=== PATIENT | female | born 1960 | race Hispanic/Latino ===

== ENCOUNTER → 2018-04-17 | Outpatient (CLI) | payer OTHER ==
[~2018-04-17] MED LIST: DICYCLOMINE HCL20 MG PO; OMEPRAZOLE40 MG PO; PANTOPRAZOLE SO40 MG PO; RANITIDINE HCL150 MG PO; RANITIDINE HCL300 M1 PO; REGLAN10 MG PO; SUCRALFATE1 GM PO; ZOFRAN ODT4 MG SL
--- NOTE | 2018-04-26 08:45 | Diagnostic Imaging Report ---
#[id number] - MGSCRBIL #BILATERAL DIGITAL SCREENING MAMMOGRAM WITH CAD: 04/17/2018 CLINICAL: Routine screening. Comparison is made to exams dated: 03/25/2017 mammogram and 01/23/2015 mammogram - [facility]. Current study contains 4 films. The tissue of both breasts is heterogeneously dense. This may lower the sensitivity of mammography. Current study was also evaluated with a Computer Aided Detection (CAD) system. There are benign calcifications in the right breast. No significant masses, calcifications, or other findings are seen in either breast. There has been no significant interval change. IMPRESSION: BENIGN There is no mammographic evidence of malignancy. A 1 year screening mammogram is recommended. The patient will be notified by letter of the results. Jenrao flanagan/arsh:04/25/2018 16:22:36 Smelter Charger: Renita MELGAR(Myrtle)(Tiffany), [facility] letter sent: Compared to Prior B9 Mammogram BI-RADS: 2 Benign
== END ==
LOC: MAMMO 11:22
PROVIDERS: ATTEND Obstetrics & Gynecology
DX: Z12.31 Encounter for screening mammogram for malignant neoplasm of breast (principal)
CPT/HCPCS: 77067

== ENCOUNTER → 2018-07-13 | Day surgery (SDC) | payer OTHER ==
[~2018-07-13] MED LIST changes: +FENTANYL CITRATE/PF 100MCG/2 ML INJ ONE; +MIDAZOLAM HCL 2 MG/2 ML VIAL ONE; +PROPOFOL IV EMULSION 10 MG/ML 50 ML VIAL ONE
[2018-07-13 17:00] VITALS: BP 146/90
--- NOTE | 2018-07-13 20:00 | Operative Report ---
DATE OF PROCEDURE: July 13, 2018 PROCEDURES PERFORMED: Esophagogastroduodenoscopy with biopsies and pyloric channel stricture dilatation per TTS balloon dilators. REFERRING PHYSICIAN: Dr. Beto Pavon INDICATIONS FOR EGD: Upper abdominal pain, bloating, dark stools. MEDICATION: Patient was done under MAC. Please see anesthesiologist note. PROCEDURE IN DETAIL: With the patient in left lateral decubitus position, the flexible fiberoptic Olympus gastroscope was introduced into the esophagus under direct visualization without any difficulty. There was some patchy erythema noted in distal esophagus. The scope was then advanced with ease into the stomach, and the mucosa overlying the antrum and the body revealed some diffuse erythema and low-grade edema, and biopsies were obtained and sent to stain for H. pylori. The pylorus was somewhat stenotic and that was dilated to size 20 mm per TTS balloon dilators. The scope was then advanced with ease all the way to the second portion of the duodenum. A minute nodule was noted in the proximal second portion that was biopsied, also biopsies were obtained from the proximal second portion and the duodenal bulb to rule out sprue. The scope was then withdrawn back into the stomach. It was then retroflexed. The mucosa overlying the fundus and the cardia appeared to be within normal limits. The scope was then straightened out. It was subsequently withdrawn. Patient tolerated procedure well. IMPRESSION: 1. Distal esophagitis. 2. Gastritis, biopsied. Biopsy sent to stain for Helicobacter pylori. 3. Pyloric channel stricture dilated to size 20 mm per TTS balloon dilators. 4. Rule out sprue. 5. Nodule, proximal second portion, biopsied. PLAN: Follow up histology. Increase omeprazole to 40 mg 1 p.o. a.c. b.i.d. Job#: [id number] cc:BETO PAVON M.D.
--- OUTSIDE RECORDS SUMMARY | 2018-07-14 11:09 | XMS REPORT ---
Author [facility] Address Unknown Phone Unavailable Care Team Providers Care Director Of Capital Giving Name Role Phone FREDDIE TRAORE Unavailable Unavailable Problems This patient has no known problems. Allergies, Adverse Reactions, Alerts This patient has no known allergies or adverse reactions. Medications This patient has no known medications. Results Test Description Test Time Test Comments Text Results Atomic Results Result Comments MAMMOGRAPHY DIGITAL SCR BILAT 2018-04-17 12:46:00 [place] [address] Patient Name: BERNADETTE MARTINEZ MR #: [id number] : 1960 Age/Sex: 58/F Req #: [id number] [facility] Physician: Ordered by: FREDDIE TRAORE MD Report #: [id number] Location: MAMMO Room/Bed: Procedure: [id number] MG/MAMMOGRAPHY DIGITAL SCR BILAT Exam Date: 04/17/18 Exam Time: 1233 REPORT STATUS: Signed #[id number] - MGSCRBIL #BILATERAL DIGITAL SCREENING MAMMOGRAM WITH CAD: 04/17/2018 CLINICAL: Routine screening. Comparison is made to exams dated: 03/25/2017 mammogram and 01/23/2015 mammogram - [facility]. Current study contains 4 films. The tissue of both breasts is heterogeneously dense. This may lower the sensitivity of mammography. Current study was also evaluated with a Computer Aided Detection (CAD) system. There are benign calcifications in the right breast. No significant masses, calcifications, or other findings are seen in either breast. There has been no significant interval change. IMPRESSION: BENIGN There is no mammographic evidence of malignancy. A 1 year screening mammogram is recommended. The patient will be notified by letter of the results. Sd flanagan/dominic:04/25/2018 16:22:36 Bale Piler: Renita PINO)(Tiffany), [facility] letter sent: Compared to Prior B9 Mammogram BI-RADS: 2 Benign Dictated By: SD LAMAS DO 21 Transcribed By: DOMINIC on 04/25/181621 COPY TO: FREDDIE TRAORE MD MAMMOGRAPHY DIGITAL SCR BILAT [place] [address] Patient Name: BERNADETTE MARTINEZ MR #: [id number] : 1960 Age/Sex: 57/F Req #: [id number] [facility] Physician: Ordered by: FREDDIE TRAORE MD Report #: [id number] Location: MAMMO Room/Bed: Procedure: [id number] MG/MAMMOGRAPHY DIGITAL SCR BILAT Exam Date: 03/25/17 Exam Time: 0842 REPORT STATUS: Signed #[id number] - MGSCRBIL #BILATERAL DIGITAL SCREENING MAMMOGRAM WITH CAD: 03/25/2017 CLINICAL: Routine screening. Comparison is made to exams dated: 03/11/2016 mammogram, 01/23/2015 mammogram and 01/23/2014 mammogram - [facility]. Current study contains 4 films. The tissue of both breasts is heterogeneously dense. This may lower the sensitivity of mammography. Current study was also evaluated with a Computer Aided Detection (CAD) system. There are benign calcifications in the right breast. No significant masses, calcifications, or other findings are seen in either breast. There has been no significant interval change. IMPRESSION: BENIGN There is no mammographic evidence of malignancy. A 1 year screening mammogram is recommended. The patient will be notified by letter of the results. Sd flanagan/dominic:03/29/2017 12:09:19 Bale Piler: Renita MELGAR(R)(M), [facility] letter sent: Compared to Prior B9 Mammogram BI-RADS: 2 Benign Dictated By: SD LAMAS DO 1208 Transcribed By: DOMINIC on 03/29/17 1201 COPY TO: FREDDIE TRAORE MD
--- OUTSIDE RECORDS SUMMARY | 2018-07-14 11:09 | XMS REPORT | Clinical Summary ---
Author Author [facility] Address Unknown Phone Unavailable Care Team Providers Care Piper Installer Name Role Phone Caitlin Pavon MD PCP Allergies No Known Allergies Medications End Date Status Medication Sig Dispensed Refills Start Date Active omeprazole (PriLOSEC) 40 Daily 0 MG capsule 04/12/2018 gabapentin (NEURONTIN) Take 1 90 capsule 11 100 mg capsule capsule (100 7 mg total) by mouth 3 (three) times a day. Active Problems Problem Noted Date Reflux laryngitis 02/03/2017 Overview: Added automatically from request for surgery [id number] Family History Medical History Relation Name Comments Diabetes Brother Heart disease Brother Heart disease Father Relation Name Status Comments Brother Father Social History Date Tobacco Use Types Packs/Day Years Used Never Smoker Sex Assigned at Date Recorded Not on file Industry Job Start Date Occupation Not on file Not on file Not on file Travel End Travel History Travel Start No recent travel history available. Last Filed Vital Signs Not on file Plan of Treatment Health Maintenance Due Date Last Done Comments CERVICAL CANCER SCREENING 1982 BREAST CANCER SCREENING 2011 COLON CANCER SCREENING 2011 SHINGLES VACCINES (1 of 2011 2) INFLUENZA VACCINE 01/11/2018 Results Not on fileafter 07/13/2017 Insurance Payer Benefit Subscriber ID Type Phone Address Plan / Group [facility] xxxxxxxxx HMO/PPO THCARE CHOICE/CHO ICE + Advance Directives Patient has advance care planning documents on file. For more information, janeen e contact: Wes Garcia [address] [place] [address]
== END | disposition home or self-care (01) ==
LOC: OR 11:06
PROVIDERS: ATTEND Internal Medicine Gastroenterology
DX: D13.2 Benign neoplasm of duodenum (principal); K20.9 Esophagitis, unspecified; K29.70 Gastritis, unspecified, without bleeding; K31.1 Adult hypertrophic pyloric stenosis; K21.9 Gastro-esophageal reflux disease without esophagitis; R03.0 Elevated blood-pressure reading, without diagnosis of hypertension; Z88.6 Allergy status to analgesic agent; Z01.810 Encounter for preprocedural cardiovascular examination; Z68.29 Body mass index [BMI] 29.0-29.9, adult
CPT/HCPCS: 43239; 43245; 93005; C1726; J2250; J2704; 43233

== ENCOUNTER → 2018-07-29 | Day surgery (SDC) | payer OTHER ==
[~2018-07-29] MED LIST changes: -FENTANYL CITRATE/PF 100MCG/2 ML INJ ONE; +PROBIOTIC PO; +PROPOFOL IV EMULSION 10 MG/ML 20 ML VIAL ONE; -PROPOFOL IV EMULSION 10 MG/ML 50 ML VIAL ONE
--- NOTE | 2018-07-29 16:51 | Operative Report ---
DATE OF PROCEDURE: July 29, 2018 REFERRING PHYSICIAN: Dr. Caitlin Pavon. PROCEDURE PERFORMED: Esophagogastroduodenoscopy with polypectomy. INDICATIONS FOR PROCEDURE: History of duodenal adenoma. EGD is being done to remove any residual polypoid tissue. MEDICATION: Patient was done under MAC. Please see anesthesiologist's note. PROCEDURE: With the patient in left lateral decubitus position, a flexible fiberoptic Olympus gastroscope was introduced into the esophagus under direct visualization without any difficulty. The esophagus appeared to be within normal limits. The scope was then advanced with ease into the stomach. Mucosa overlying the antrum and body revealed some patchy erythema. Pylorus was intubated with ease, and the scope was advanced all the way to the 2nd portion of the duodenum. The previously described duodenal nodule was identified and all residual tissue was removed per snare electrocautery and polypectomy site was hemoclipped. The duodenal bulb appeared to be within normal limits. The scope was then withdrawn back into the stomach and retroflexed. Mucosa overlying the fundus and the cardia appeared to be within normal limits. The scope was then straightened out. It was subsequently withdrawn. Patient tolerated the procedure well. IMPRESSION 1. Normal esophagus. 2. Gastritis, mild. 3. Previously described adenoma site removed per snare electrocautery and hemoclipped. PLAN: Follow up histology. Continue omeprazole 40 mg 1 p.o. a.c. b.i.d. Job#: [id number] LPA cc:CAITLIN PAVON MD
--- OUTSIDE RECORDS SUMMARY | 2018-07-31 11:48 | XMS REPORT | Clinical Summary ---
Author Author [facility] Address Unknown Phone Unavailable Care Team Providers Care Poultry Picking Machine Tender Name Role Phone Caitlin Pavon MD PCP [...] Overview: Added automatically from request for surgery [id number] Family History Medical History Relation Name Comments [...] INFLUENZA VACCINE 01/11/2018 Results Not on fileafter 07/30/2017 Insurance Payer Benefit Subscriber ID Type Phone Address Plan / Group [employer] xxxxxxxxx HMO/PPO THCARE CHOICE/CHO ICE + Advance Directives Patient has advance care planning documents on file. For more information, janeen e contact: Wes Garcia [address] [place] [address]
== END | disposition home or self-care (01) ==
LOC: OR 12:06
PROVIDERS: ATTEND Internal Medicine Gastroenterology
DX: D13.2 Benign neoplasm of duodenum (principal); R03.0 Elevated blood-pressure reading, without diagnosis of hypertension; Z68.28 Body mass index [BMI] 28.0-28.9, adult; R10.10 Upper abdominal pain, unspecified; R11.0 Nausea; Z88.8 Allergy status to other drugs, medicaments and biological substances
CPT/HCPCS: 43251; J2250; J2704

== ENCOUNTER → 2019-01-19 | Day surgery (SDC) | payer OTHER ==
[~2019-01-19] MED LIST changes: +ALIGN4 MG PO; +LIDOCAINE HCL 2% LOCAL INJ 5 ML SDV VIAL INJ ONE; -PROPOFOL IV EMULSION 10 MG/ML 20 ML VIAL ONE; +PROPOFOL IV EMULSION 10 MG/ML 50 ML VIAL ONE
--- OUTSIDE RECORDS SUMMARY | 2019-01-19 08:05 | XMS REPORT | Clinical Summary ---
Author Author [facility] Address Unknown Phone Unavailable Care Team Providers Care Process Development Associate Name Role Phone Caitlin Pavon MD PCP [...] Overview: Added automatically from request for surgery [id number] Family History Medical History Relation Name Comments [...] Health Maintenance Due Date Last Done Comments BREAST CANCER SCREENING 2011 COLONOSCOPY SCREENING 2011 SHINGLES VACCINES (#1) 2011 INFLUENZA VACCINE 01/11/2019 Results Not on fileafter 01/18/2018 Insurance Type Payer Benefit Subscriber ID Effective Phone Address Plan / Dates Group HMO/PPO [facility] xxxxxxxxx [id number] THCARE resent CHOICE/CHO ICE + Advance Directives Patient has advance care planning documents on file. For more information, janeen e contact: Wes Garcia [address] [place] [address]
[2019-01-19 11:55] VITALS: BP 129/87
--- NOTE | 2019-01-19 15:27 | Operative Report ---
DATE OF PROCEDURE: 01/19/2019 SURGEON: Matthew Pierce MD PROCEDURE: Esophagogastroduodenoscopy with biopsies. INDICATIONS FOR PROCEDURES: History of duodenal adenoma. MEDICATIONS: The patient was done under MAC, please see anesthesiologist's note. PROCEDURE IN DETAIL: With the patient in left lateral decubitus position, flexible fiberoptic Olympus gastroscope was introduced into the esophagus under direct visualization without any difficulty. There was some patchy erythema noted in distal esophagus. Overall, the esophagus appeared to be within normal limits. The scope was then advanced with ease into the stomach. Mild inflammatory changes were noted in the antrum. The pylorus was of normal contour and shape, it was intubated with ease and the scope was advanced all the way to the second portion of the duodenum. Polypectomy site was noted in the proximal second portion and biopsies were obtained. Mucosa overlying the duodenal bulb appeared to be within normal limits. The scope was then withdrawn back into the stomach and retroflexed, mucosa overlying the fundus and cardia appeared to be within normal limits. The scope was then straightened out, it was subsequently withdrawn. The patient tolerated the procedure well. IMPRESSION: 1. Normal esophagus. 2. Gastritis, mild. 3. Polypectomy site second portion of duodenum, extensively biopsied. PLAN: Follow up histology. Continue omeprazole 40 mg one p.o. a.c. b.i.d. If biopsies were totally unremarkable, then the patient might benefit from a followup EGD in 3 years. Matthew Pierce MD [facility] /[id number] cc: Caitlin Pavon
== END | disposition home or self-care (01) ==
LOC: OR 08:03
PROVIDERS: ATTEND Internal Medicine Gastroenterology
DX: D13.2 Benign neoplasm of duodenum (principal); K29.70 Gastritis, unspecified, without bleeding; R03.0 Elevated blood-pressure reading, without diagnosis of hypertension; Z88.6 Allergy status to analgesic agent; Z01.810 Encounter for preprocedural cardiovascular examination; Z68.29 Body mass index [BMI] 29.0-29.9, adult
CPT/HCPCS: 43239; 93005; J2001; J2250; J2704

== ENCOUNTER → 2019-06-07 | Outpatient (CLI) | payer OTHER ==
[~2019-06-07] MED LIST changes: -LIDOCAINE HCL 2% LOCAL INJ 5 ML SDV VIAL INJ ONE; -MIDAZOLAM HCL 2 MG/2 ML VIAL ONE; -PROPOFOL IV EMULSION 10 MG/ML 50 ML VIAL ONE
--- NOTE | 2019-06-22 10:03 | Diagnostic Imaging Report ---
#[id number] - MGSCRBIL #BILATERAL DIGITAL SCREENING MAMMOGRAM WITH CAD: 06/07/2019 CLINICAL: Routine screening. Comparison is made to exams dated: 04/17/2018 mammogram, 03/25/2017 mammogram, 03/11/2016 mammogram, 01/23/2015 mammogram, 01/23/2014 mammogram and 09/23/2012 mammogram - [facility]. The tissue of both breasts is heterogeneously dense. This may lower the sensitivity of mammography. Current study was also evaluated with a Computer Aided Detection (CAD) system. There are benign lymph nodes in both breasts. There also is a benign calcification and an intramammary node in the right breast. Additionally there are benign vascular calcifications in the left breast. No significant masses, calcifications, or other findings are seen in either breast. There has been no significant interval change. IMPRESSION: BENIGN There is no mammographic evidence of malignancy. A 1 year screening mammogram is recommended. The patient will be notified by letter of the results. MASHA wright/arsh:06/21/2019 13:09:36 Cable Engineer: Renita PINO)(M), [facility] letter sent: Compared to Prior B9 Mammogram BI-RADS: 2 Benign
== END ==
LOC: MAMMO 08:10
PROVIDERS: ATTEND Obstetrics & Gynecology
DX: Z12.31 Encounter for screening mammogram for malignant neoplasm of breast (principal)
CPT/HCPCS: 77067

== ENCOUNTER → 2019-12-24 | Day surgery (SDC) | payer OTHER ==
[~2019-12-24] MED LIST changes: +HYOSCYAMINE 0.125 MG TAB ONE; +OSTEO BI-FLEX1 EAC2 PO; +PROBIOTIC & AC1 EACH PO; +PROPOFOL IV EMULSION 10 MG/ML 20 ML VIAL ONE; +VITAMIN C PO; +[UNRECOGNIZED DRUG - OTHER] PO; +[UNRECOGNIZED DRUG - OTHER] PO
[2019-12-24 12:18] VITALS: BP 121/78
--- NOTE | 2019-12-24 13:48 | Operative Report ---
DATE OF PROCEDURE: 12/24/2019 SURGEON: Matthew Pierce MD PROCEDURES: EGD with polypectomy and biopsies, and colonoscopy with polypectomy. INDICATIONS FOR EGD: Upper abdominal pain, history of duodenal adenoma. INDICATIONS FOR COLONOSCOPY: Surveillance colonoscopy, personal history of colon polyps. MEDICATIONS: The patient was done under MAC, please see anesthesiologist's note. DESCRIPTION OF PROCEDURE: With the patient in left lateral decubitus position, a flexible fiberoptic Olympus gastroscope was introduced into the esophagus under direct visualization without any difficulty. The esophagus appeared to be within normal limits. The scope was then advanced with ease into the stomach. Mucosa overlying the antrum and the body revealed some patchy erythema and low-grade to moderate edema, and biopsies were obtained. A minute polyp was noted in the body of the stomach, that was removed per cold biopsy forceps. The pylorus was of normal contour and shape, it was intubated with ease and the scope was advanced all the way to the second portion of the duodenum. Polypectomy site was noted in the proximal second portion and that was biopsied. The mucosa overlying the duodenal bulb appeared to be within normal limits. The scope was then withdrawn back into the stomach and retroflexed, mucosa overlying the fundus and cardia appeared to be within normal limits. The scope was then straightened out, it was subsequently withdrawn. The patient tolerated the procedure well. IMPRESSION: 1. Normal esophagus. 2. Gastritis, biopsied, biopsies sent to stain for H. pylori. 3. Gastric polyps, body, removed per cold biopsy forceps. 4. Polypectomy site, proximal second portion of duodenum, biopsied. PLAN: 1. Follow up histology. 2. Increase omeprazole to 40 mg one p.o. a.c. b.i.d. DESCRIPTION OF PROCEDURE: The patient was then turned around after adequate lubrication of the anal canal, the flexible fiberoptic Olympus colonoscope was inserted into the rectum with ease and advanced all the way to the cecum. An approximately 5 mm sessile polyp was noted in the cecum, that was removed per cold snare polypectomy. The mucosa overlying the ascending, transverse, and descending grossly appeared to be within normal limits; other than for minimal diverticular disease. One polyp was cold biopsied from the sigmoid colon. The rectum appeared to be within normal limits. The scope was then retroflexed into the distal rectum and appeared to be within normal limits. The scope was then straightened out, it was subsequently withdrawn. The patient tolerated the procedure well. IMPRESSION: 1. Cecal polyp, cold snared. 2. Diverticulosis, minimal. 3. Sigmoid colon polyp, cold biopsied. PLAN: 1. Follow up histology. 2. Initiate high-fiber, low-fat diet. 3. Initiate high-fiber supplement. 4. The patient might benefit from a followup colonoscopy in 3 to 5 years. Matthew Pierce MD [facility] /[id number] cc: Caitlin Pavon
== END | disposition home or self-care (01) ==
LOC: OR 09:14
PROVIDERS: ATTEND Internal Medicine Gastroenterology
DX: K29.80 Duodenitis without bleeding (principal); D12.4 Benign neoplasm of descending colon; K31.7 Polyp of stomach and duodenum; K29.60 Other gastritis without bleeding; K31.89 Other diseases of stomach and duodenum; K20.8 Other esophagitis; K57.30 Diverticulosis of large intestine without perforation or abscess without bleeding; M85.80 Other specified disorders of bone density and structure, unspecified site; Z88.6 Allergy status to analgesic agent; Z01.810 Encounter for preprocedural cardiovascular examination; Z01.812 Encounter for preprocedural laboratory examination; Z11.59 Encounter for screening for other viral diseases; Z68.27 Body mass index [BMI] 27.0-27.9, adult
CPT/HCPCS: 43239; 45380; 45385; 93005; J2704; U0002; 45378; 45384

== ENCOUNTER → 2020-05-06 | Outpatient (CLI) | payer OTHER ==
[~2020-05-06] MED LIST changes: -HYOSCYAMINE 0.125 MG TAB ONE; -PROPOFOL IV EMULSION 10 MG/ML 20 ML VIAL ONE
== END ==
LOC: MAMMO 13:59
PROVIDERS: ATTEND Obstetrics & Gynecology
DX: Z12.31 Encounter for screening mammogram for malignant neoplasm of breast (principal)
CPT/HCPCS: 77067

== ENCOUNTER 2021-05-08 04:57 | Emergency (ER) | payer OTHER ==
[~2021-05-08] VITALS: Ht 157.5 cm; Wt 68.5 kg
[~2021-05-08 04:57] MED LIST changes: +FAMOTIDINE20 MG PO; +FLONASE ALLERG9.9 ML INH; +MONTELUKAST SOD10 MG PO; +SYMBICORT 16010.2 GM INH; +TESSALON PERLE100 MG PO
[2021-05-08] MEDS ORDERED: DONNATAL/LIDOCAINE/MAALOX 30 ML SUSP PO ONE (05:30)
[2021-05-08] MEDS ORDERED: LIDOCAINE VISC 2% SOLN 15 ML UDC ONE (05:36)
[2021-05-08] MEDS ORDERED: MAGNESIUM/ALUMINUM/SIMETHICONE 30 ML UDC ONE (05:37)
[2021-05-08] MEDS ORDERED: BELLADONNA ALK/PHENOBARBITAL 5 ML UDC ONE (05:37)
[2021-05-08] MEDS ORDERED: Azelastine NS (14:57)
[2021-05-10] MEDS ORDERED: GUAIFEN-CODEINE5 ML PO (10:44)
[2021-05-10] MEDS ORDERED: PANTOPRAZOLE SO40 MG PO (10:44)
[2021-05-10] MEDS ORDERED: REGLAN10 MG PO (15:32)
== END 2021-05-08 06:08 | disposition home or self-care (01) ==
LOC: ER 05:31
DX: K21.9 Gastro-esophageal reflux disease without esophagitis (principal); Z86.718 Personal history of other venous thrombosis and embolism
CPT/HCPCS: 93005; 99282

== ENCOUNTER 2021-05-08 10:50 | Inpatient (IN) | payer OTHER ==
[~2021-05-08] VITALS: Ht 160 cm; Wt 69.4 kg
[2021-05-08 11:53] LABS: BASOPHILS % 0.6 % (0.0-1.0); EOSINOPHILS % 0.4 % (0.0-6.0); HEMATOCRIT 39.1 % (34.2-44.1); HEMOGLOBIN 12.6 g/dL (12.0-16.0); LYMPHOCYTES # (AUTO) 2.1 (1.0-3.2); LYMPHOCYTES % 29.5 % (18.0-39.1); MEAN CORPUSCULAR HEMOGLOBIN 29.9 pg (28-32); MEAN CORPUSCULAR HGB CONC 32.2 g/dL (31-35); MEAN CORPUSCULAR VOLUME 92.9 fL (81-99); MONOCYTES # (AUTO) 0.4 (0.2-0.8); MONOCYTES % 5.9 % (4.4-11.3); NEUTROPHILS # (AUTO) 4.5 (2.1-6.9); NEUTROPHILS % 63.3 % (38.7-80.0); PLATELET COUNT 243 x10e3/uL (140-360); RED BLOOD COUNT 4.21 x10e6/uL (3.6-5.1); RED CELL DISTRIBUTION WIDTH 13.3 % (11.7-14.4)
[2021-05-08 12:12] LABS: ALBUMIN 3.9 g/dL (3.5-5.0); ALBUMIN/GLOBULIN RATIO 1.3 (0.8-2.0); ANION GAP 12.7 mmol/L (8-16); CALCIUM 8.5 mg/dL (8.4-10.2); CREATININE, SERUM 0.72 mg/dL (0.57-1.11); POTASSIUM 3.7 mmol/L (3.5-5.1)
[2021-05-08 13:30] VITALS: BP 127/65
[2021-05-08] MEDS ORDERED: ONDANSETRON HCL INJ 2MG/ML 2ML 2 MG/ML VIAL IV PRN (14:00)
[2021-05-08] MEDS ORDERED: Morphine 2mg Syringe 2 MG/ML SYR IV PRN (14:00)
[2021-05-08] MEDS ORDERED: METOCLOPRAMIDE HCL 10 MG/2ML VIAL IV ONE (14:30)
[2021-05-08] MEDS ORDERED: SODIUM CHLORIDE 0.9% 50ML 50 ML ONE (14:53)
[2021-05-08] MEDS ORDERED: IOPAMIDOL 370 MG/ML 200 ML INFUS..BTL INJ ONE (14:53)
[2021-05-08] MEDS ORDERED: Azelastine NS (14:57)
[2021-05-08] MEDS: Pantoprazole IV 40 MG in SODIUM CHLORIDE 0.9% 50ML 50 ML IV SCH ×2 (15:56→21:03)
[2021-05-08] MEDS: METOCLOPRAMIDE HCL 10 MG/2ML VIAL IV SCH ×2 (15:56→21:38)
[2021-05-08 16:04] VITALS: BP 131/74
[2021-05-08] MEDS ORDERED: SODIUM CHLORIDE 0.9% 250ML 250 ML ONE (16:13)
[2021-05-08] MEDS: GUAIFENESIN/CODEINE 5 ML LIQD PO PRN ×2 (16:25→22:38)
[2021-05-08 20:00] VITALS: BP 100/67
[2021-05-08 21:00] VITALS: BP 100/67
[2021-05-09] VITALS (9 sets, daily range): BP systolic 96–130; BP diastolic 61–81
[2021-05-09] MEDS: Pantoprazole IV 40 MG in SODIUM CHLORIDE 0.9% 50ML 50 ML IV SCH ×5 (01:02→21:34)
[2021-05-09] MEDS: METOCLOPRAMIDE HCL 10 MG/2ML VIAL IV SCH ×4 (03:22→21:35)
[2021-05-09 06:17] LABS: BASOPHILS # (AUTO) 0.1 (0.0-0.1); BASOPHILS % 0.8 % (0.0-1.0); EOSINOPHILS % 0.6 % (0.0-6.0); HEMATOCRIT 38.7 % (34.2-44.1); HEMOGLOBIN 12.2 g/dL (12.0-16.0); LYMPHOCYTES # (AUTO) 2.6 (1.0-3.2); LYMPHOCYTES % 41.1 % (18.0-39.1); MEAN CORPUSCULAR HEMOGLOBIN 30.1 pg (28-32); MEAN CORPUSCULAR HGB CONC 31.5 g/dL (31-35); MEAN CORPUSCULAR VOLUME 95.6 fL (81-99); MONOCYTES # (AUTO) 0.4 (0.2-0.8); MONOCYTES % 6.9 % (4.4-11.3); NEUTROPHILS # (AUTO) 3.2 (2.1-6.9); NEUTROPHILS % 50.4 % (38.7-80.0); PLATELET COUNT 216 x10e3/uL (140-360); RED BLOOD COUNT 4.05 x10e6/uL (3.6-5.1); RED CELL DISTRIBUTION WIDTH 13.2 % (11.7-14.4)
[2021-05-09 06:51] LABS: ANION GAP 13.7 mmol/L (8-16); CALCIUM 9.1 mg/dL (8.4-10.2); CREATININE, SERUM 0.76 mg/dL (0.57-1.11); POTASSIUM 3.7 mmol/L (3.5-5.1)
[2021-05-09] MEDS ORDERED: PROPOFOL IV EMULSION 10 MG/ML 20 ML VIAL ONE (12:43)
[2021-05-09] MEDS ORDERED: POVIDONE IODINE 0.05% 0.05 % ML PO ONE (12:43)
[2021-05-09] MEDS: GUAIFENESIN/CODEINE 5 ML LIQD PO PRN (17:52)
[2021-05-10] VITALS: BP 122/65
[2021-05-10] MEDS: METOCLOPRAMIDE HCL 10 MG/2ML VIAL IV SCH ×2 (02:40→08:46)
[2021-05-10] MEDS: Pantoprazole IV 40 MG in SODIUM CHLORIDE 0.9% 50ML 50 ML IV SCH ×3 (02:40→12:53)
[2021-05-10 04:00] VITALS: BP 122/69
[2021-05-10 06:29] LABS: BASOPHILS # (AUTO) 0.1 (0.0-0.1); BASOPHILS % 0.8 % (0.0-1.0); EOSINOPHILS # (AUTO) 0.1 (0.0-0.4); EOSINOPHILS % 0.8 % (0.0-6.0); HEMATOCRIT 37.7 % (34.2-44.1); HEMOGLOBIN 12.1 g/dL (12.0-16.0); LYMPHOCYTES # (AUTO) 2.5 (1.0-3.2); LYMPHOCYTES % 35.1 % (18.0-39.1); MEAN CORPUSCULAR HGB CONC 32.1 g/dL (31-35); MEAN CORPUSCULAR VOLUME 93.5 fL (81-99); MONOCYTES # (AUTO) 0.5 (0.2-0.8); MONOCYTES % 7.3 % (4.4-11.3); NEUTROPHILS % 55.9 % (38.7-80.0); PLATELET COUNT 231 x10e3/uL (140-360); RED BLOOD COUNT 4.03 x10e6/uL (3.6-5.1); RED CELL DISTRIBUTION WIDTH 12.9 % (11.7-14.4)
[2021-05-10 06:47] LABS: ANION GAP 14.5 mmol/L (8-16); CALCIUM 9.1 mg/dL (8.4-10.2); CREATININE, SERUM 0.76 mg/dL (0.57-1.11); POTASSIUM 3.5 mmol/L (3.5-5.1)
[2021-05-10] MEDS ORDERED: SODIUM CHLORIDE 0.9% 50ML 50 ML ONE (08:43)
[2021-05-10 09:27] VITALS: BP 136/81
[2021-05-10] MEDS ORDERED: GUAIFEN-CODEINE5 ML PO (10:44)
[2021-05-10] MEDS ORDERED: PANTOPRAZOLE SO40 MG PO (10:44)
[2021-05-10] MEDS ORDERED: REGLAN10 MG PO (15:32)
== END 2021-05-10 16:30 | disposition home or self-care (01) | DRG 392 ==
LOC: ER 11:56 → ERHOLD 12:31 → MED/SURG2 13:30 → OBSVTOIN 05-10 09:59
PROVIDERS: ADMIT Internal Medicine; ATTEND Internal Medicine
PROC: 0DJ08ZZ Inspection of Upper Intestinal Tract, Via Natural or Artificial Opening Endoscopic (ICD-10-PCS; principal; 2021-05-09 08:00)
DX: K21.9 Gastro-esophageal reflux disease without esophagitis (principal); K44.9 Diaphragmatic hernia without obstruction or gangrene; R05.3 Chronic cough; Z86.718 Personal history of other venous thrombosis and embolism; Z79.01 Long term (current) use of anticoagulants; Z86.711 Personal history of pulmonary embolism; K29.70 Gastritis, unspecified, without bleeding; Z20.822 Contact with and (suspected) exposure to COVID-19
CPT/HCPCS: 36415; 43235; 71260; 74177; 80048; 80053; 83735; 85025; 94799; 99284; G0378; J2765; J7050; Q9967; U0002

== ENCOUNTER → 2021-05-12 | Outpatient (CLI) | payer OTHER ==
[~2021-05-12] MED LIST changes: +Azelastine NS; +GUAIFEN-CODEINE5 ML PO
== END ==
LOC: MAMMO 08:41
PROVIDERS: ATTEND Obstetrics & Gynecology
DX: Z12.31 Encounter for screening mammogram for malignant neoplasm of breast (principal)
CPT/HCPCS: 77067

== ENCOUNTER 2021-05-17 20:29 | Inpatient (IN) | payer OTHER ==
[~2021-05-17] VITALS: Ht 160 cm; Wt 68.1 kg
[2021-05-17] MEDS ORDERED: ALBUTEROL/IPRATROPIUM 3 ML NEB NEB STA (20:39)
[2021-05-17] MEDS ORDERED: FAMOTIDINE 20 MG/2 ML VIAL IV STA (20:46)
[2021-05-17 20:59] LABS: BASOPHILS % 0.5 % (0.0-1.0); EOSINOPHILS # (AUTO) 0.1 (0.0-0.4); EOSINOPHILS % 0.8 % (0.0-6.0); HEMATOCRIT 38.5 % (34.2-44.1); HEMOGLOBIN 12.6 g/dL (12.0-16.0); LYMPHOCYTES # (AUTO) 2.9 (1.0-3.2); LYMPHOCYTES % 39.8 % (18.0-39.1); MEAN CORPUSCULAR HEMOGLOBIN 30.1 pg (28-32); MEAN CORPUSCULAR HGB CONC 32.7 g/dL (31-35); MEAN CORPUSCULAR VOLUME 91.9 fL (81-99); MONOCYTES # (AUTO) 0.6 (0.2-0.8); MONOCYTES % 7.8 % (4.4-11.3); NEUTROPHILS # (AUTO) 3.7 (2.1-6.9); PLATELET COUNT 262 x10e3/uL (140-360); RED BLOOD COUNT 4.19 x10e6/uL (3.6-5.1); RED CELL DISTRIBUTION WIDTH 13.1 % (11.7-14.4)
[2021-05-17 21:19] LABS: CREATINE KINASE MB 1.5 ng/mL (0-5.0)
[2021-05-17 21:24] LABS: ALBUMIN 4.2 g/dL (3.5-5.0); ALBUMIN/GLOBULIN RATIO 1.4 (0.8-2.0); ANION GAP 14.6 mmol/L (8-16); CALCIUM 8.7 mg/dL (8.4-10.2); CREATININE, SERUM 0.83 mg/dL (0.57-1.11); POTASSIUM 3.6 mmol/L (3.5-5.1)
[2021-05-17] MEDS ORDERED: SODIUM CHLORIDE 0.9% 50ML 50 ML ONE (22:12)
[2021-05-17] MEDS ORDERED: IOPAMIDOL 370 MG/ML 200 ML INFUS..BTL INJ ONE (22:12)
[2021-05-17] MEDS ORDERED: PEPCID20 MG PO (23:34)
[2021-05-18] VITALS (9 sets, daily range): BP systolic 119–127; BP diastolic 63–74
[2021-05-18] MEDS: METOCLOPRAMIDE HCL 10 MG/2ML VIAL IV SCH ×4 (00:28→17:33)
[2021-05-18] MEDS: SODIUM CHLORIDE 0.9% 1000ML 1,000 ML IV SCH ×4 (00:28→21:35)
[2021-05-18] MEDS: Pantoprazole IV 40 MG in SODIUM CHLORIDE 0.9% 50ML 50 ML IV SCH ×5 (00:30→20:17)
[2021-05-18] MEDS ORDERED: INFLUENZA VIRUS VAC SPLIT INJ 0.5 ML SYR IM SCH (04:06)
[2021-05-18] MEDS ORDERED: GUAIFENESIN/CODEINE 5 ML LIQD PO PRN (06:45)
[2021-05-18 07:31] LABS: BASOPHILS # (AUTO) 0.1 (0.0-0.1); BASOPHILS % 0.8 % (0.0-1.0); EOSINOPHILS # (AUTO) 0.1 (0.0-0.4); EOSINOPHILS % 0.8 % (0.0-6.0); HEMATOCRIT 37.7 % (34.2-44.1); LYMPHOCYTES # (AUTO) 2.4 (1.0-3.2); LYMPHOCYTES % 33.5 % (18.0-39.1); MEAN CORPUSCULAR HEMOGLOBIN 29.8 pg (28-32); MEAN CORPUSCULAR HGB CONC 31.8 g/dL (31-35); MEAN CORPUSCULAR VOLUME 93.5 fL (81-99); MONOCYTES # (AUTO) 0.6 (0.2-0.8); NEUTROPHILS % 55.8 % (38.7-80.0); PLATELET COUNT 242 x10e3/uL (140-360); RED BLOOD COUNT 4.03 x10e6/uL (3.6-5.1); RED CELL DISTRIBUTION WIDTH 13.2 % (11.7-14.4)
[2021-05-18 07:54] LABS: ALBUMIN 3.7 g/dL (3.5-5.0); ALBUMIN/GLOBULIN RATIO 1.5 (0.8-2.0); ANION GAP 11.7 mmol/L (8-16); CALCIUM 8.4 mg/dL (8.4-10.2); CREATININE, SERUM 0.76 mg/dL (0.57-1.11); POTASSIUM 3.7 mmol/L (3.5-5.1)
[2021-05-18 08:11] LABS: CREATINE KINASE MB 2.6 ng/mL (0-5.0)
[2021-05-18] MEDS: POLYETHYLENE GLYCOL 3350 17 GM PACK PO SCH (09:00)
[2021-05-18] MEDS: Morphine 2mg Syringe 2 MG/ML SYR IV PRN ×2 (09:53→10:26)
[2021-05-18 16:49] LABS: CREATINE KINASE MB 1.9 ng/mL (0-5.0)
[2021-05-19] VITALS (8 sets, daily range): BP systolic 117–138; BP diastolic 58–82
[2021-05-19] MEDS: METOCLOPRAMIDE HCL 10 MG/2ML VIAL IV SCH ×4 (00:42→18:02)
[2021-05-19] MEDS: Pantoprazole IV 40 MG in SODIUM CHLORIDE 0.9% 50ML 50 ML IV SCH ×5 (01:25→20:29)
[2021-05-19 05:06] LABS: BASOPHILS # (AUTO) 0.1 (0.0-0.1); BASOPHILS % 0.9 % (0.0-1.0); EOSINOPHILS % 0.7 % (0.0-6.0); HEMATOCRIT 37.6 % (34.2-44.1); HEMOGLOBIN 12.1 g/dL (12.0-16.0); LYMPHOCYTES # (AUTO) 1.9 (1.0-3.2); LYMPHOCYTES % 33.3 % (18.0-39.1); MEAN CORPUSCULAR HEMOGLOBIN 29.7 pg (28-32); MEAN CORPUSCULAR HGB CONC 32.2 g/dL (31-35); MEAN CORPUSCULAR VOLUME 92.4 fL (81-99); MONOCYTES # (AUTO) 0.6 (0.2-0.8); MONOCYTES % 9.4 % (4.4-11.3); NEUTROPHILS # (AUTO) 3.2 (2.1-6.9); NEUTROPHILS % 55.4 % (38.7-80.0); PLATELET COUNT 235 x10e3/uL (140-360); RED BLOOD COUNT 4.07 x10e6/uL (3.6-5.1); RED CELL DISTRIBUTION WIDTH 12.8 % (11.7-14.4)
[2021-05-19 05:38] LABS: ALBUMIN 3.4 g/dL (3.5-5.0); ALBUMIN/GLOBULIN RATIO 1.4 (0.8-2.0); ANION GAP 11.6 mmol/L (8-16); CALCIUM 8.3 mg/dL (8.4-10.2); CREATININE, SERUM 0.72 mg/dL (0.57-1.11); POTASSIUM 3.6 mmol/L (3.5-5.1)
[2021-05-19] MEDS: SODIUM CHLORIDE 0.9% 1000ML 1,000 ML IV SCH ×2 (06:10→18:02)
[2021-05-19] MEDS ORDERED: IOPAMIDOL 370 MG/ML 200 ML INFUS..BTL INJ ONE (07:22)
[2021-05-19] MEDS ORDERED: SODIUM CHLORIDE 0.9% 50ML 50 ML ONE (07:22)
[2021-05-19] MEDS: POLYETHYLENE GLYCOL 3350 17 GM PACK PO SCH (07:30)
[2021-05-19] MEDS ORDERED: CITRATE OF MAGNESIA 300ML BOTTLE PO NR (08:45)
[2021-05-19] MEDS ORDERED: BISACODYL 10 MG SUPP PR NR (10:30)
[2021-05-19] MEDS: GENTAMICIN SULFATE 15 GM CR TP SCH (20:29)
[2021-05-20] VITALS (8 sets, daily range): BP systolic 107–131; BP diastolic 56–82
[2021-05-20] MEDS: METOCLOPRAMIDE HCL 10 MG/2ML VIAL IV SCH ×4 (00:32→16:47)
[2021-05-20] MEDS ORDERED: ALBUTEROL/IPRATROPIUM 3 ML NEB NEB PRN (01:30)
[2021-05-20] MEDS: SODIUM CHLORIDE 0.9% 1000ML 1,000 ML IV SCH ×3 (01:41→16:00)
[2021-05-20] MEDS: Pantoprazole IV 40 MG in SODIUM CHLORIDE 0.9% 50ML 50 ML IV SCH ×5 (01:42→22:31)
[2021-05-20] MEDS: IPRATROPIUM BROMIDE 0.06% 42 MCG NASPR NS SCH ×3 (09:00→21:30)
[2021-05-20] MEDS: NEOMYCIN/POLYMYXIN/BACITRACIN 15 GM TUBE TOP SCH ×3 (09:00→21:30)
[2021-05-20] MEDS: POLYETHYLENE GLYCOL 3350 17 GM PACK PO SCH (09:00)
[2021-05-20] MEDS: GENTAMICIN SULFATE 15 GM CR TP SCH ×3 (09:00→21:30)
[2021-05-20] MEDS: SALINE 0.65% NAS SOLN 1 SPRAY BTL SCH ×4 (10:00→21:30)
[2021-05-21] VITALS (7 sets, daily range): BP systolic 112–135; BP diastolic 54–79
[2021-05-21] MEDS: METOCLOPRAMIDE HCL 10 MG/2ML VIAL IV SCH ×5 (00:22→23:10)
[2021-05-21] MEDS: SODIUM CHLORIDE 0.9% 1000ML 1,000 ML IV SCH ×4 (03:16→23:10)
[2021-05-21] MEDS: Pantoprazole IV 40 MG in SODIUM CHLORIDE 0.9% 50ML 50 ML IV SCH ×5 (03:50→23:00)
[2021-05-21] MEDS: SALINE 0.65% NAS SOLN 1 SPRAY BTL SCH ×5 (06:00→21:27)
[2021-05-21] MEDS: IPRATROPIUM BROMIDE 0.06% 42 MCG NASPR NS SCH ×3 (08:44→21:00)
[2021-05-21] MEDS: GENTAMICIN SULFATE 15 GM CR TP SCH ×3 (08:45→21:00)
[2021-05-21] MEDS: POLYETHYLENE GLYCOL 3350 17 GM PACK PO SCH (08:45)
[2021-05-21] MEDS: NEOMYCIN/POLYMYXIN/BACITRACIN 15 GM TUBE TOP SCH ×3 (08:45→21:00)
[2021-05-21] MEDS: TRIMETHOPRIM/SULFAMETHOXAZOLE 160-800 MG TAB PO SCH ×2 (11:00→21:25)
[2021-05-21] MEDS: ONDANSETRON HCL INJ 2MG/ML 2ML 2 MG/ML VIAL IV PRN (22:15)
[2021-05-22] VITALS (8 sets, daily range): BP systolic 112–133; BP diastolic 56–74
[2021-05-22] MEDS: Pantoprazole IV 40 MG in SODIUM CHLORIDE 0.9% 50ML 50 ML IV SCH ×4 (04:00→18:31)
[2021-05-22] MEDS: SALINE 0.65% NAS SOLN 1 SPRAY BTL SCH ×3 (06:00→14:00)
[2021-05-22] MEDS: METOCLOPRAMIDE HCL 10 MG/2ML VIAL IV SCH ×2 (06:00→12:53)
[2021-05-22 06:07] LABS: BASOPHILS % 0.3 % (0.0-1.0); EOSINOPHILS # (AUTO) 0.1 (0.0-0.4); EOSINOPHILS % 1.1 % (0.0-6.0); HEMATOCRIT 35.4 % (34.2-44.1); HEMOGLOBIN 11.4 g/dL (12.0-16.0); LYMPHOCYTES # (AUTO) 2.2 (1.0-3.2); LYMPHOCYTES % 34.1 % (18.0-39.1); MEAN CORPUSCULAR HEMOGLOBIN 29.5 pg (28-32); MEAN CORPUSCULAR HGB CONC 32.2 g/dL (31-35); MEAN CORPUSCULAR VOLUME 91.7 fL (81-99); MONOCYTES # (AUTO) 0.6 (0.2-0.8); MONOCYTES % 8.8 % (4.4-11.3); NEUTROPHILS # (AUTO) 3.5 (2.1-6.9); NEUTROPHILS % 55.4 % (38.7-80.0); PLATELET COUNT 249 x10e3/uL (140-360); RED BLOOD COUNT 3.86 x10e6/uL (3.6-5.1); RED CELL DISTRIBUTION WIDTH 13.2 % (11.7-14.4)
[2021-05-22 06:58] LABS: CALCIUM 8.6 mg/dL (8.4-10.2); CREATININE, SERUM 0.8 mg/dL (0.57-1.11)
[2021-05-22] MEDS: IPRATROPIUM BROMIDE 0.06% 42 MCG NASPR NS SCH ×3 (09:00→21:07)
[2021-05-22] MEDS: POLYETHYLENE GLYCOL 3350 17 GM PACK PO SCH (09:00)
[2021-05-22] MEDS: GENTAMICIN SULFATE 15 GM CR TP SCH ×3 (09:00→21:07)
[2021-05-22] MEDS: NEOMYCIN/POLYMYXIN/BACITRACIN 15 GM TUBE TOP SCH ×2 (09:00→15:00)
[2021-05-22] MEDS: TRIMETHOPRIM/SULFAMETHOXAZOLE 160-800 MG TAB PO SCH (09:00)
[2021-05-22] MEDS: SODIUM CHLORIDE 0.9% 1000ML 1,000 ML IV SCH (09:15)
[2021-05-22] MEDS ORDERED: POTASSIUM CHLORIDE 20MEQ/100ML 200 ML IV ONE (09:30)
[2021-05-22] MEDS: Morphine 2mg Syringe 2 MG/ML SYR IV PRN (11:00)
[2021-05-22] MEDS ORDERED: DEXTROSE 5%/LACTATED RINGERS 1,000 ML IV ONE (12:15)
[2021-05-22] MEDS ORDERED: SEVOFLURANE INHAL SOLN 250 ML PEN BTL ONE (12:27)
[2021-05-22] MEDS ORDERED: GLYCOPYRROLATE INJ 0.2 MG/ML VIAL ONE (12:27)
[2021-05-22] MEDS ORDERED: SUCCINYLCHOLINE CHLORIDE 20 MG/ML 10ML VIAL ONE (12:27)
[2021-05-22] MEDS ORDERED: POVIDONE IODINE 0.05% 0.05 % ML PO ONE (12:27)
[2021-05-22] MEDS ORDERED: ONDANSETRON HCL INJ 2MG/ML 2ML 2 MG/ML VIAL ONE (12:27)
[2021-05-22] MEDS ORDERED: PHENYLEPHRINE HCL 1% 10 MG/ML VIAL ONE (12:27)
[2021-05-22] MEDS ORDERED: NEOSTIGMINE 1 MG/ML 10ML VIAL ONE (12:27)
[2021-05-22] MEDS ORDERED: ROCURONIUM BROMIDE 10 MG/ML 5ML VIAL IV ONE (12:27)
[2021-05-22] MEDS ORDERED: PROPOFOL IV EMULSION 10 MG/ML 20 ML VIAL ONE (12:27)
[2021-05-22] MEDS ORDERED: LIDOCAINE HCL 2% LOCAL INJ 5 ML SDV VIAL INJ ONE (12:27)
[2021-05-22] MEDS ORDERED: DEXAMETHASONE SOD PHOS INJ 4 MG/ML SDV ONE (12:27)
[2021-05-22] MEDS ORDERED: FENTANYL CITRATE/PF 100MCG/2 ML INJ ONE ×2 (12:49→16:35)
[2021-05-22] MEDS ORDERED: MIDAZOLAM HCL 2 MG/2 ML VIAL ONE (12:49)
[2021-05-22] MEDS ORDERED: SODIUM CHLORIDE 0.9% 50ML 50 ML ONE (12:57)
[2021-05-22] MEDS ORDERED: BUPIVACAINE 0.25% 30ML SDV ONE (14:08)
[2021-05-22] MEDS ORDERED: ACETAMINOPHEN 1000 MG/100 ML 100 ML IV ONE (15:19)
[2021-05-22] MEDS ORDERED: ACETAMINOPHEN 1000 MG/100 ML IV PRN (16:15)
[2021-05-22] MEDS ORDERED: Morphine 2mg Syringe 2 MG/ML SYR ONE (17:16)
[2021-05-22] MEDS ORDERED: SODIUM CHLORIDE 0.9% 250ML 250 ML ONE (18:20)
[2021-05-22] MEDS: D5.45%NS/KCL 20MEQ 1,000 ML IV SCH (18:31)
[2021-05-22] MEDS: SODIUM CHLORIDE 0.9% 250ML IRRIG IR SCH ×2 (18:31→20:46)
[2021-05-22] MEDS: HYDROMORPHONE 1MG/1ML INJ IV PRN ×2 (19:30→23:05)
[2021-05-23] VITALS (8 sets, daily range): BP systolic 113–140; BP diastolic 65–80
[2021-05-23] MEDS: Pantoprazole IV 40 MG in SODIUM CHLORIDE 0.9% 50ML 50 ML IV SCH ×5 (00:01→20:34)
[2021-05-23] MEDS: METOCLOPRAMIDE HCL 10 MG/2ML VIAL IV SCH ×5 (00:06→23:55)
[2021-05-23] MEDS: SODIUM CHLORIDE 0.9% 250ML IRRIG IR SCH ×5 (00:07→16:15)
[2021-05-23] MEDS: D5.45%NS/KCL 20MEQ 1,000 ML IV SCH ×3 (02:59→22:23)
[2021-05-23] MEDS: HYDROMORPHONE 1MG/1ML INJ IV PRN ×6 (05:40→23:57)
[2021-05-23 06:01] LABS: BASOPHILS % 0.1 % (0.0-1.0); HEMATOCRIT 36.2 % (34.2-44.1); HEMOGLOBIN 12.2 g/dL (12.0-16.0); LYMPHOCYTES % 11.2 % (18.0-39.1); MEAN CORPUSCULAR HEMOGLOBIN 29.8 pg (28-32); MEAN CORPUSCULAR HGB CONC 33.7 g/dL (31-35); MEAN CORPUSCULAR VOLUME 88.5 fL (81-99); MONOCYTES # (AUTO) 0.5 (0.2-0.8); NEUTROPHILS # (AUTO) 7.5 (2.1-6.9); NEUTROPHILS % 83.3 % (38.7-80.0); PLATELET COUNT 267 x10e3/uL (140-360); RED BLOOD COUNT 4.09 x10e6/uL (3.6-5.1)
[2021-05-23 06:32] LABS: ANION GAP 12.9 mmol/L (8-16); CALCIUM 8.5 mg/dL (8.4-10.2); CREATININE, SERUM 0.72 mg/dL (0.57-1.11); POTASSIUM 3.9 mmol/L (3.5-5.1)
[2021-05-23 07:47] LABS: CALCIUM IONIZED 1.1 mmol/L (1.09-1.30)
[2021-05-23 07:58] LABS: MAGNESIUM 1.3 MG/DL (1.3-2.1)
[2021-05-23] MEDS: GENTAMICIN SULFATE 15 GM CR TP SCH ×3 (09:00→20:32)
[2021-05-23] MEDS: IPRATROPIUM BROMIDE 0.06% 42 MCG NASPR NS SCH ×3 (09:00→20:32)
[2021-05-23] MEDS ORDERED: NEOMYCIN/POLYMYXIN/BACITRACIN 15 GM TUBE TOP PRN (09:00)
[2021-05-24] VITALS (8 sets, daily range): BP systolic 121–143; BP diastolic 68–82
[2021-05-24] MEDS: Pantoprazole IV 40 MG in SODIUM CHLORIDE 0.9% 50ML 50 ML IV SCH ×5 (01:39→21:04)
[2021-05-24] MEDS: METOCLOPRAMIDE HCL 10 MG/2ML VIAL IV SCH ×2 (05:06→11:32)
[2021-05-24] MEDS: D5.45%NS/KCL 20MEQ 1,000 ML IV SCH ×2 (08:17→21:04)
[2021-05-24] MEDS: IPRATROPIUM BROMIDE 0.06% 42 MCG NASPR NS SCH ×3 (08:18→21:00)
[2021-05-24] MEDS: GENTAMICIN SULFATE 15 GM CR TP SCH ×3 (08:18→19:58)
[2021-05-24] MEDS: HYDROMORPHONE 1MG/1ML INJ IV PRN ×2 (12:01→23:40)
[2021-05-24] MEDS: ONDANSETRON HCL INJ 2MG/ML 2ML 2 MG/ML VIAL IV PRN (23:40)
[2021-05-25] VITALS: BP 145/75
[2021-05-25] MEDS: Pantoprazole IV 40 MG in SODIUM CHLORIDE 0.9% 50ML 50 ML IV SCH ×4 (01:00→15:48)
[2021-05-25 03:50] VITALS: BP 119/65
[2021-05-25 07:51] VITALS: BP 135/71
[2021-05-25] MEDS: D5.45%NS/KCL 20MEQ 1,000 ML IV SCH (08:33)
[2021-05-25] MEDS: IPRATROPIUM BROMIDE 0.06% 42 MCG NASPR NS SCH ×2 (09:34→15:48)
[2021-05-25] MEDS: GENTAMICIN SULFATE 15 GM CR TP SCH ×2 (09:34→15:20)
[2021-05-25 09:40] VITALS: BP 135/71
[2021-05-25 12:14] VITALS: BP 124/65
[2021-05-25 16:09] VITALS: BP 124/84
== END 2021-05-25 18:27 | disposition home or self-care (01) | DRG 328 ==
LOC: ER 20:34 → ERHOLD 23:57 → MED/SURG2 05-18 01:19 → OBSVTOIN 05-20 09:06 → MED/SURG 05-22 17:08
PROVIDERS: ADMIT Internal Medicine; ATTEND Internal Medicine
PROC: 0DV44ZZ Restriction of Esophagogastric Junction, Percutaneous Endoscopic Approach (ICD-10-PCS; principal; 2021-05-22 11:00)
DX: K21.9 Gastro-esophageal reflux disease without esophagitis (principal); K44.9 Diaphragmatic hernia without obstruction or gangrene; J31.0 Chronic rhinitis; R05.3 Chronic cough; E66.9 Obesity, unspecified; Z88.1 Allergy status to other antibiotic agents; Z88.8 Allergy status to other drugs, medicaments and biological substances; Z90.49 Acquired absence of other specified parts of digestive tract; Z09 Encounter for follow-up examination after completed treatment for conditions other than malignant neoplasm; Z86.718 Personal history of other venous thrombosis and embolism; Z86.711 Personal history of pulmonary embolism; R21 Rash and other nonspecific skin eruption; Z68.26 Body mass index [BMI] 26.0-26.9, adult; Z20.822 Contact with and (suspected) exposure to COVID-19
CPT/HCPCS: 36415; 70487; 70491; 71260; 74230; 74246; 80048; 80053; 82550; 82553; 83735; 83880; 84484; 85025; 93005; 94799; 96360; 96361; 99284; G0378; J0330; J1100; J1170; J2001; J2250; J2270; J2370; J2405; J2710; J2765; J3010; J3480; J7030; J7050; Q9967; U0002

== ENCOUNTER 2021-06-11 22:04 | Emergency (ER) | payer OTHER ==
[~2021-06-11] VITALS: Ht 312.4 cm; Wt 68.0 kg
[~2021-06-11 22:04] MED LIST changes: +PEPCID20 MG PO
[2021-06-11 23:07] LABS: BASOPHILS # (AUTO) 0.1 (0.0-0.1); BASOPHILS % 1.1 % (0.0-1.0); EOSINOPHILS # (AUTO) 0.1 (0.0-0.4); EOSINOPHILS % 0.9 % (0.0-6.0); HEMATOCRIT 36.9 % (34.2-44.1); HEMOGLOBIN 11.8 g/dL (12.0-16.0); LYMPHOCYTES # (AUTO) 3.2 (1.0-3.2); LYMPHOCYTES % 42.6 % (18.0-39.1); MEAN CORPUSCULAR HEMOGLOBIN 29.4 pg (28-32); MONOCYTES # (AUTO) 0.6 (0.2-0.8); MONOCYTES % 7.5 % (4.4-11.3); NEUTROPHILS # (AUTO) 3.6 (2.1-6.9); NEUTROPHILS % 47.8 % (38.7-80.0); PLATELET COUNT 296 x10e3/uL (140-360); RED BLOOD COUNT 4.01 x10e6/uL (3.6-5.1); RED CELL DISTRIBUTION WIDTH 13.2 % (11.7-14.4)
[2021-06-11 23:27] LABS: AMYLASE 103 U/L (25-125); LIPASE 60 U/L (8-78)
[2021-06-11 23:31] LABS: ALBUMIN 4.2 g/dL (3.5-5.0); ALBUMIN/GLOBULIN RATIO 1.4 (0.8-2.0); ANION GAP 14.2 mmol/L (8-16); CALCIUM 9.2 mg/dL (8.4-10.2); CREATININE, SERUM 0.86 mg/dL (0.57-1.11); POTASSIUM 4.2 mmol/L (3.5-5.1)
[2021-06-12 01:42] VITALS: BP 137/79
[2021-06-12] MEDS ORDERED: IOPAMIDOL 370 MG/ML 200 ML INFUS..BTL INJ ONE (03:17)
[2021-06-12] MEDS ORDERED: SODIUM CHLORIDE 0.9% 50ML 50 ML ONE (03:18)
== END 2021-06-12 01:51 | disposition home or self-care (01) ==
LOC: ER 22:28
DX: R05.9 Cough, unspecified (principal); K21.9 Gastro-esophageal reflux disease without esophagitis; R10.13 Epigastric pain; Z98.890 Other specified postprocedural states; Z90.49 Acquired absence of other specified parts of digestive tract; Z88.6 Allergy status to analgesic agent; Z88.1 Allergy status to other antibiotic agents; Z20.822 Contact with and (suspected) exposure to COVID-19; Z86.711 Personal history of pulmonary embolism; Z86.718 Personal history of other venous thrombosis and embolism
CPT/HCPCS: 36415; 71045; 74177; 80053; 82150; 83690; 85025; 99284; Q9967; U0002

== ENCOUNTER → 2022-05-14 | Outpatient (CLI) | payer OTHER | LOC: MAMMO 09:02 | PROVIDERS: ATTEND Obstetrics & Gynecology | DX: Z12.31 Encounter for screening mammogram for malignant neoplasm of breast (principal) | CPT/HCPCS: 77067 ==

== ENCOUNTER → 2022-09-04 | Day surgery (SDC) | payer OTHER ==
[~2022-09-04] MED LIST changes: +HYOSCYAMINE SULFATE 0.5 MG/ML INJ ONE; +LACTATED RINGER'S 1,000 ML ONE; +LEVOTHYROXINE50 MCG PO; +LIDOCAINE HCL 2% LOCAL INJ 5 ML SDV VIAL INJ ONE; +NP THYROID60 MG PO; +ONDANSETRON HCL 4 MG ORAL DISINTEGRATING TAB ONE
[2022-09-04 14:20] VITALS: BP 112/80
== END | disposition home or self-care (01) ==
LOC: OR 09:36
PROVIDERS: ATTEND Internal Medicine Gastroenterology
DX: K29.60 Other gastritis without bleeding (principal); Z86.010 Personal history of colon polyps; K31.7 Polyp of stomach and duodenum; K21.9 Gastro-esophageal reflux disease without esophagitis; K64.8 Other hemorrhoids; Z71.3 Dietary counseling and surveillance; E03.9 Hypothyroidism, unspecified; M85.80 Other specified disorders of bone density and structure, unspecified site; Z71.89 Other specified counseling; R05.3 Chronic cough; R03.0 Elevated blood-pressure reading, without diagnosis of hypertension; Z88.6 Allergy status to analgesic agent; Z01.810 Encounter for preprocedural cardiovascular examination; Z79.899 Other long term (current) drug therapy; Z68.28 Body mass index [BMI] 28.0-28.9, adult; Z98.890 Other specified postprocedural states
CPT/HCPCS: 43239; 45378; 93005; C9113; J1980; J2001; J7121; Q0126

== ENCOUNTER → 2022-12-11 | Day surgery (SDC) | payer OTHER ==
[~2022-12-11] MED LIST changes: -LIDOCAINE HCL 2% LOCAL INJ 5 ML SDV VIAL INJ ONE; -ONDANSETRON HCL 4 MG ORAL DISINTEGRATING TAB ONE; +PROPOFOL IV EMULSION 10 MG/ML 20 ML VIAL ONE
[2022-12-11 13:32] VITALS: TEMP 98.4
[2022-12-11 13:55] VITALS: BP 121/77; PULSE 72; RESP 18; O2SAT 100
== END | disposition home or self-care (01) ==
LOC: OR 11:25
PROVIDERS: ATTEND Internal Medicine Gastroenterology
DX: R93.3 Abnormal findings on diagnostic imaging of other parts of digestive tract (principal); K29.70 Gastritis, unspecified, without bleeding; K21.9 Gastro-esophageal reflux disease without esophagitis; K63.5 Polyp of colon; Z98.890 Other specified postprocedural states; M85.80 Other specified disorders of bone density and structure, unspecified site; E03.9 Hypothyroidism, unspecified; K31.89 Other diseases of stomach and duodenum; Z88.1 Allergy status to other antibiotic agents; Z88.6 Allergy status to analgesic agent; Z68.28 Body mass index [BMI] 28.0-28.9, adult; Z86.718 Personal history of other venous thrombosis and embolism; Z87.440 Personal history of urinary (tract) infections
CPT/HCPCS: 43235; J1980; J2704; J7121; 43239

== ENCOUNTER → 2024-02-06 | Day surgery (SDC) | payer OTHER ==
[~2024-02-06] MED LIST changes: +FENTANYL CITRATE/PF 100MCG/2 ML INJ ONE; -HYOSCYAMINE SULFATE 0.5 MG/ML INJ ONE; -LACTATED RINGER'S 1,000 ML ONE; +LIDOCAINE HCL 2% LOCAL INJ 5 ML SDV VIAL INJ ONE; +METOCLOPRAMIDE HCL 10 MG/2ML VIAL ONE; -PROPOFOL IV EMULSION 10 MG/ML 20 ML VIAL ONE; +PROPOFOL IV EMULSION 10 MG/ML 50 ML VIAL IV ONE
[2024-02-06] MEDS: LACTATED RINGER'S 1,000 ML ONE (08:11)
[2024-02-06 09:18] VITALS: TEMP 97.6
[2024-02-06 09:30] VITALS: BP 108/69; PULSE 72; RESP 15; O2SAT 95
== END | disposition home or self-care (01) ==
LOC: OR 07:48
PROVIDERS: ATTEND Internal Medicine Gastroenterology
DX: K29.60 Other gastritis without bleeding (principal); K29.50 Unspecified chronic gastritis without bleeding; K31.89 Other diseases of stomach and duodenum; K31.9 Disease of stomach and duodenum, unspecified; M19.91 Primary osteoarthritis, unspecified site; K44.9 Diaphragmatic hernia without obstruction or gangrene; R94.31 Abnormal electrocardiogram [ECG] [EKG]; Z86.718 Personal history of other venous thrombosis and embolism; Z87.440 Personal history of urinary (tract) infections; Z01.810 Encounter for preprocedural cardiovascular examination; Z79.899 Other long term (current) drug therapy
CPT/HCPCS: 43239; 88305; 88342; 93005; J2001; J2470; J2765

== ENCOUNTER → 2024-09-10 | Day surgery (SDC) | payer OTHER ==
[~2024-09-10] MED LIST changes: +AMLODIPINE BESYL5 MG PO; -FENTANYL CITRATE/PF 100MCG/2 ML INJ ONE; +FISH OIL 1,0001 EAC7 PO; +LACTATED RINGER'S 1,000 ML ONE; +MAGNESIUM PO; +MANUKA HONEY PO; +PROPOFOL IV EMULSION 10 MG/ML 20 ML VIAL ONE; -PROPOFOL IV EMULSION 10 MG/ML 50 ML VIAL IV ONE; +PROTONIX20 MG PO; +VITAMIN B-1100 M1 PO; +VITAMIN B-121000 MCG PO; +VITAMIN B-650 MG PO; +VITAMIN C1000 MG PO; +VITAMIN D2 PO; +VITAMIN E1000 UNI1 PO; +[UNRECOGNIZED DRUG - OTHER] PO; +[UNRECOGNIZED DRUG - REMARK] VG
[2024-09-10 14:30] VITALS: TEMP 97.7
[2024-09-10 14:50] VITALS: BP 120/67; PULSE 76; RESP 18; O2SAT 99
== END | disposition home or self-care (01) ==
LOC: OR 11:29
PROVIDERS: ATTEND Internal Medicine Gastroenterology
DX: K29.70 Gastritis, unspecified, without bleeding (principal); D13.2 Benign neoplasm of duodenum; K31.89 Other diseases of stomach and duodenum; K21.9 Gastro-esophageal reflux disease without esophagitis; K44.9 Diaphragmatic hernia without obstruction or gangrene; Z98.890 Other specified postprocedural states; I10 Essential (primary) hypertension; M19.90 Unspecified osteoarthritis, unspecified site; G89.29 Other chronic pain; Z88.6 Allergy status to analgesic agent; Z88.1 Allergy status to other antibiotic agents; Z01.810 Encounter for preprocedural cardiovascular examination; Z79.899 Other long term (current) drug therapy; Z86.718 Personal history of other venous thrombosis and embolism
CPT/HCPCS: 43239; 93005; J2003; J2470; J2704; J2765; J7121